=== PATIENT | male | born 1985 | race Two or more races ===

== ENCOUNTER 2020-09-15 13:23 | Emergency (ER) | payer SELFPAY ==
[~2020-09-15] VITALS: Ht 167.6 cm; Wt 80.0 kg
[~2020-09-15 13:23] MED LIST: ACET325T14
[2020-09-15 13:24] VITALS: BP 174/94
[2020-09-15] MEDS ORDERED: IBUPROFEN 600 MG TABLET PO ONE (14:00)
[2020-09-15] MEDS ORDERED: IBUPROFEN 600 MG TABLET ONE (14:37)
== END 2020-09-15 15:03 | disposition home or self-care (01) ==
LOC: ED 14:58
DX: K08.89 Other specified disorders of teeth and supporting structures (principal)
CPT/HCPCS: 99283